=== PATIENT | male | born 1965 | race Caucasian/White ===

== ENCOUNTER 2022-06-28 07:43 | Day surgery (SDC) | payer OTHER ==
[~2022-06-28] VITALS: Ht 147.3 cm; Wt 56.3 kg
[~2022-06-28 07:43] MED LIST: SODIUM CHLORIDE 0.9% 1,000 ML IV ONE; SODIUM CHLORIDE 0.9% 1,000 ML ONE
[2022-06-28] MEDS ORDERED: LIDOCAINE 2% 11 ML JELLY TP ONE (07:44)
[2022-06-28] MEDS ORDERED: LIDOCAINE 4% 50 ML SOLUTION TP ONE (07:44)
[2022-06-28] MEDS ORDERED: ALBUTEROL SULFATE 2.5 MG/0.5 ML NEB SOLUTION NEB ONE (07:44)
[2022-06-28] MEDS ORDERED: BENZOCAINE 20% 50 MCG/SPRAY 57 GM TP ONE (07:44)
[2022-06-28] MEDS ORDERED: RIFA300C36 PO (08:27)
[2022-06-28] MEDS ORDERED: MONT-40 PO (08:27)
[2022-06-28] MEDS ORDERED: TRAZ-252 PO (08:29)
[2022-06-28] MEDS ORDERED: BUDE0.5A3 NEB (08:32)
[2022-06-28] MEDS ORDERED: FLUT16H NASAL (08:33)
[2022-06-28] MEDS ORDERED: MIDAZOLAM HCL 2 MG/2 ML VIAL ONE (08:47)
[2022-06-28] MEDS ORDERED: FentaNYL CITRATE PF 100 MCG/2 ML VIAL ONE (08:47)
[2022-06-28] MEDS ORDERED: MethylPREDNISolone SOD SUCC 125 MG/2 ML VIAL ONE (09:42)
[2022-06-28] MEDS ORDERED: MethylPREDNISolone SOD SUCC 125 MG/2 ML VIAL IVP ONE (09:45)
== END 2022-06-28 11:50 | disposition home or self-care (01) ==
LOC: SURGERY 07:43
PROVIDERS: ATTEND Internal Medicine Critical Care Medicine
DX: J38.4 Edema of larynx (principal); B37.0 Candidal stomatitis; Z79.899 Other long term (current) drug therapy
CPT/HCPCS: 31623; 88305; 88112; 87206; 87101; 87220; 87070; 87186; 31624; 94640; 71045; 87015; J3010; J2250; J2930; Q9967; J7030; J7613; Z7610